=== PATIENT | male | born 1980 | race Caucasian/White ===

== ENCOUNTER 2022-12-31 18:23 | Emergency (ER) | payer OTHER, SELFPAY ==
[2022-12-31 18:27] VITALS: BP 139/89; PULSE 81; RESP 20; TEMP 36.7; O2SAT 100; BMI 28.6
--- NOTE | 2022-12-31 18:43 | ED.DENTAL1 ---
HPI - Dental/Oral General Chief complaint: Dental/Oral Stated complaint: TOOTH ABCESS Time Seen by Provider: 12/31/22 18:43 Source: patient Mode of arrival: walk-in Limitations: no limitations History of Present Illness HPI Narrative: patient is a 42-year-old male who presents to the emergency department for a one-day history of swelling to the left mandible. Patient states yesterday he noticed a toothache in the left mandible, he used ibuprofen and warm compresses and states he was feeling better, on waking this morning he noticed that the left side of his jaw was significantly swollen. He has multiple dental caries and generally poor dentition. He does not have a dentist. He did not take any medications prior to arrival. He has not noticed any drainage inside the mouth. Related Data Home Medications Medication Instructions Recorded Confirmed No Known Home Medications 12/31/22 12/31/22 Previous Rx's Medication Instructions Recorded clindamycin HCl 150 mg capsule 300 mg PO Q6H 10 days #80 caps 12/31/22 hydrocodone 5 mg-acetaminophen 325 1 tab PO Q6H PRN pain #12 tabs 12/31/22 mg tablet ketorolac 10 mg tablet 10 mg PO TID PRN pain #10 tabs 12/31/22 ondansetron 4 mg disintegrating 4 mg PO Q6H PRN nausea and 12/31/22 tablet vomiting #12 tabs Allergies Allergy/AdvReac Type Severity Reaction Status Date / Time No Known Drug Allergies Allergy Verified 12/31/22 18:27 Review of Systems ROS Constitutional Denies: fever or chills Ears, nose, mouth, and throat Denies: throat pain Respiratory Denies: shortness of breath Gastrointestinal Denies: nausea or vomiting Integumentary/Breast Denies: rash Neurological Reports: headache Hematologic/Lymphatic Denies: easy bruising PFSH PFSH Social History Smoking status: Former smoker Exam Narrative Exam Narrative: Gen.: Awake, alert, in no distress Head: Normocephalic, atraumatic ENT: Moist mucous membranes; poor dentition with multiple teeth eroded to the gumline. Tooth #18 is eroded, root exposure at the gumline. No visible abscess of the gumline. No redness or swelling under the tongue. Clear speech. No trismus or drooling. Airway widely open and patent with uvula midline. Tenderness and moderate swelling over the left mandible, no swelling noted into the submandibular space. Respiratory: No respiratory distress Extremities: Moves extremities equally Psych: Normal mood and affect Neuro: No focal neuro deficit Skin: Warm, dry, intact Constitutional Vital Signs, click to edit/add: Last Vital Signs Temp 98.1 F 12/31/22 18:27 Pulse 81 12/31/22 18:27 Resp 20 12/31/22 18:27 BP 139/89 12/31/22 18:27 Pulse Ox 100 12/31/22 18:27 O2 Del Method Room Air 12/31/22 18:27 Course Vital Signs Vital signs: Vital Signs Temperature 98.1 F 12/31/22 18:27 Pulse Rate 81 12/31/22 18:27 Respiratory Rate 20 12/31/22 18:27 Blood Pressure 139/89 12/31/22 18:27 Pulse Oximetry 100 12/31/22 18:27 Oxygen Delivery Method Room Air 12/31/22 18:27 Temperature 98.1 F 12/31/22 18:27 Pulse Rate 81 12/31/22 18:27 Respiratory Rate 20 12/31/22 18:27 Blood Pressure 139/89 12/31/22 18:27 Pulse Oximetry 100 12/31/22 18:27 Oxygen Delivery Method Room Air 12/31/22 18:27 MDM - Dental/Oral MDM Narrative Medical decision making narrative: patient treated with IV clindamycin, 900 mg in the Emergency Room. Toradol given for comfort. He is strongly encouraged to continue warm compresses, take his antibiotics for a full ten days and follow-up with a dentist. Return to the emergency department if symptoms change or worsen. At time of evaluation in the Emergency Room, patient has stable vital signs, no evidence of submandibular swelling or Rusty angina. Medical Records Attestation: I reviewed the patient's medical records. Discharge Plan Discharge Chief Complaint: Dental/Oral Clinical Impression: Toothache, Dental abscess Patient Disposition: Home, Self-Care Time of Disposition Decision: 19:45 Condition: Good Prescriptions / Home Meds: New hydrocodone-acetaminophen 5-325 mg tablet 1 tab PO Q6H PRN (Reason: pain) Qty: 12 0RF Rx Instructions: Dx: K08.89 clindamycin HCl 150 mg capsule 300 mg PO Q6H 10 Days Qty: 80 0RF ketorolac 10 mg tablet 10 mg PO TID PRN (Reason: pain) Qty: 10 0RF ondansetron 4 mg tablet,disintegrating 4 mg PO Q6H PRN (Reason: nausea and vomiting) Qty: 12 0RF No Action No Known Home Medications Instructions: Dental Abscess (ED), Toothache (ED) Additional Instructions: Follow up dental Stand Alone Forms: Portal Instructions Referrals: Physician,Non-Staff, MD [Primary Care Provider] - 1 week
--- NOTE | 2022-12-31 18:43 | PC.NURSE ---
PT COMES TO ER WITH C/O SWELLING AND PAIN TO LEFT JAW R//T BROKEN TEETH. PT STATES THIS HAS HAPPENED IN THE PAST AND WOULD RESOLVE WITH MOTRIN.PT STATES NO RELIEF THIS TIME WITH OTC MEDICATION. NO DENTIST.
[2022-12-31] MEDS: CLINDAMYCIN PHOSPHATE/D5W 900 MG/50 ML PIGGYBACK 100 MG IV (19:04)
[2022-12-31] MEDS: KETOROLAC TROMETHAMINE 30 MG/ML VIAL IVP (19:04)
[2022-12-31 19:48] VITALS: BP 146/94; PULSE 86; RESP 16; O2SAT 99
[2022-12-31] MEDS: BENZOCAINE 30 ML, lidocaine HCL 15 ML MM (19:59)
== END 2022-12-31 20:07 | disposition home or self-care (01) ==
PROVIDERS: Emergency Provider Emergency Medicine Emergency Medical Services
DX: K04.7 Periapical abscess without sinus (principal); K08.89 Other specified disorders of teeth and supporting structures; Z87.891 Personal history of nicotine dependence
CPT/HCPCS: 96365; 96375; 99284

== ENCOUNTER 2023-04-23 19:47 | Emergency (ER) | payer OTHER, SELFPAY ==
[2023-04-23 19:51] VITALS: BP 133/90; PULSE 79; RESP 16; TEMP 36.9; O2SAT 100
--- NOTE | 2023-04-23 19:59 | ED_ITS ---
HPI - Dental/Oral General Chief complaint: Dental/Oral Stated complaint: Dental Pain Time Seen by Provider: 04/23/23 19:47 Source: patient Mode of arrival: walk-in Limitations: no limitations History of Present Illness HPI Narrative: Patient is a 42-year-old male who presents to the emergency department for swelling in the left mandible for the last 3 days. He has erosion of tooth #20 in the left mandible, he was seen by myself for maxillary swelling and dental abscess last December. He did not follow-up with a dentist. He has had no drainage from the swollen area to the left jaw. No fevers, difficulty swa llowing or speaking. No medications taken prior to arrival. Related Data Previous Rx's Medication Instructions Recorded clindamycin HCl 150 mg capsule 300 mg (2 x 150 mg) PO Q6H 10 days 12/31/22 #80 caps hydrocodone 5 mg-acetaminophen 325 1 tab PO Q6H PRN pain #12 tabs 12/31/22 mg tablet ketorolac 10 mg tablet 10 mg PO TID PRN pain #10 tabs 12/31/22 ondansetron 4 mg disintegrating 4 mg PO Q6H PRN nausea and 12/31/22 tablet vomiting #12 tabs clindamycin HCl 150 mg capsule 300 mg (2 x 150 mg) PO Q6H 10 days 04/23/23 #80 caps hydrocodone 5 mg-acetaminophen 325 1 tab PO Q6H PRN pain 3 days #12 04/23/23 mg tablet tabs naproxen sodium 550 mg tablet 550 mg PO BID PRN pain #10 tabs 04/23/23 Allergies Allergy/AdvReac Type Severity Reaction Status Date / Time No Known Drug Allergies Allergy Verified 12/31/22 18:27 Review of Systems ROS Constitutional Denies: fever or chills Ears, nose, mouth, and throat Denies: throat pain or nasal congestion Cardiovascular Denies: chest pain Respiratory Denies: shortness of breath Gastrointestinal Denies: nausea or vomiting Musculoskeletal Denies: back pain Integumentary/Breast Denies: rash Neurological Denies: headache Hematologic/Lymphatic Denies: easy bruising or easy bleeding PFSH PFSH Social History Smoking status: Former smoker Exam Narrative Exam Narrative: Gen.: Awake, alert, in no distress Head: Normocephalic, atraumatic ENT: Moist mucous membranes; Tooth #20 is tender, eroded to the gumline with multiple dental caries noted. Tenderness and firmness noted to the left mandible with no fluctuance or erythema of the face. No redness or swelling under the tongue, no evidence of Rusty angina on exam. Clear speech with airway widely open and patent. Respiratory: No respiratory distress Extremities: Moves extremities equally Psych: Normal mood and affect Neuro: No focal neuro deficit Skin: Warm, dry, intact Constitutional Vital Signs, click to edit/add: Last Vital Signs Temp 98.5 F 04/23/23 19:51 Pulse 80 04/23/23 20:20 Resp 18 04/23/23 20:20 BP 138/88 04/23/23 20:20 Pulse Ox 99 04/23/23 20:20 O2 Del Method Room Air 04/23/23 20:20 Course Vital Signs Vital signs: Vital Signs Temperature 98.5 F 04/23/23 19:51 Pulse Rate 79 04/23/23 19:51 Respiratory Rate 16 04/23/23 19:51 Blood Pressure 133/90 04/23/23 19:51 Pulse Oximetry 100 04/23/23 19:51 Oxygen Delivery Method Room Air 04/23/23 19:51 Temperature 98.5 F 04/23/23 19:51 Pulse Rate 80 04/23/23 20:20 Respiratory Rate 18 04/23/23 20:20 Blood Pressure 138/88 04/23/23 20:20 Pulse Oximetry 99 04/23/23 20:20 Oxygen Delivery Method Room Air 04/23/23 20:20 MDM - Dental/Oral MDM Narrative Medical decision making narrative: Patient with dental abscess to the left mandible. He is started on clindamycin, encouraged to apply warm compresses to the jaw and finish his course of antibiotics. Anti-inflammatories and a short course of analgesics given for home. He was given strong encouragement to follow-up with a dentist for further evaluation. No evidence of airway compromise or Rusty angina at this time. Vital signs are stable at discharge. Medical Records Attestation: I reviewed the patient's medical records. Discharge Plan Discharge Chief Complaint: Dental/Oral Clinical Impression: Toothache, Dental abscess Patient Disposition: Home, Self-Care Time of Disposition Decision: 19:57 Condition: Good Mode of Transportation: Private Vehicle Prescriptions / Home Meds: New hydrocodone-acetaminophen 5-325 mg tablet 1 tab PO Q6H PRN (Reason: pain) 3 Days Qty: 12 0RF Rx Instructions: K08.89 - DX clindamycin HCl 150 mg capsule 300 mg PO Q6H 10 Days Qty: 80 0RF naproxen sodium 550 mg tablet 550 mg PO BID PRN (Reason: pain) Qty: 10 0RF No Action hydrocodone-acetaminophen 5-325 mg tablet 1 tab PO Q6H PRN (Reason: pain) Qty: 12 0RF Rx Instructions: Dx: K08.89 clindamycin HCl 150 mg capsule 300 mg PO Q6H 10 Days Qty: 80 0RF ketorolac 10 mg tablet 10 mg PO TID PRN (Reason: pain) Qty: 10 0RF ondansetron 4 mg tablet,disintegrating 4 mg PO Q6H PRN (Reason: nausea and vomiting) Qty: 12 0RF Instructions: Dental Abscess (ED), Toothache (ED) Stand Alone Forms: Portal Instructions Referrals: Physician,Non-Staff, MD [Primary Care Provider] - 1 week Discharge Date/Time: 04/23/23 20:20
[2023-04-23] MEDS: CLINDAMYCIN HCL 150 MG CAPSULE 450 MG PO (20:16)
[2023-04-23] MEDS: BENZOCAINE 30 ML, lidocaine HCL 15 ML MM (20:16)
[2023-04-23 20:20] VITALS: BP 138/88; PULSE 80; RESP 18; O2SAT 99
== END 2023-04-23 20:20 | disposition home or self-care (01) ==
PROVIDERS: Emergency Provider Internal Medicine
DX: K04.7 Periapical abscess without sinus (principal); K08.89 Other specified disorders of teeth and supporting structures; Z87.891 Personal history of nicotine dependence
CPT/HCPCS: 99283